=== PATIENT | female | born 1985 | race African-American/Black ===

== ENCOUNTER 2024-05-19 14:15 | Emergency (ER) | payer MEDICAID, OTHER ==
[~2024-05-19] VITALS: Ht 175.3 cm; Wt 91.8 kg
[2024-05-19] MEDS ORDERED: CYCL-837 PO (15:27)
[2024-05-19] MEDS ORDERED: IBUP-1455 PO (15:27)
[2024-05-19 15:32] VITALS: BP 140/70; PULSE 90; RESP 16; TEMP 98.9; O2SAT 95
== END 2024-05-19 15:40 | disposition home or self-care (01) ==
LOC: ER 14:22
DX: S13.4XXA Sprain of ligaments of cervical spine, initial encounter (principal); S13.9XXA Sprain of joints and ligaments of unspecified parts of neck, initial encounter; V43.52XA Car driver injured in collision with other type car in traffic accident, initial encounter; Y93.89 Activity, other specified; Y92.488 Other paved roadways as the place of occurrence of the external cause; Y99.8 Other external cause status